=== PATIENT | female | born 1970 | race Caucasian/White ===

== ENCOUNTER 2018-07-21 09:20 | Outpatient (CLI) | payer OTHER ==
--- NOTE | 2018-07-21 10:06 | RAD ---
LUMBAR SPINE 3 VIEWS: Date: 07/21/18 HISTORY: Back pain. FINDINGS/IMPRESSION: There is compression of T12 vertebral body. No subluxation is seen. Degenerative changes are present. POS: [facility]
== END 2018-07-21 09:21 | disposition home or self-care (01) ==
LOC: MADRAD 09:20
PROVIDERS: ATTEND Physician Assistant
DX: M25.559 Pain in unspecified hip (principal); M47.816 Spondylosis without myelopathy or radiculopathy, lumbar region
CPT/HCPCS: 72100